=== PATIENT | male | born 1955 | race African-American/Black ===

== ENCOUNTER 2022-12-25 16:07 | Emergency (ER) | payer MEDICARE, OTHER ==
[~2022-12-25] VITALS: Ht 175.3 cm; Wt 36.0 kg
[2022-12-26 00:26] LABS: BASOPHILS % 0.1 % (0.0-2.0); EOSINOPHILS % 0.6 % (0.0-5.0); HEMATOCRIT. 45.4 % (42.0-52.0); HEMOGLOBIN. 15.1 g/dL (14.0-18.0); LYMPHOCYTES % 34.9 % (20.0-50.0); MEAN CORPUSCULAR HEMOGLOBIN 30.2 pg (28.0-32.0); MEAN CORPUSCULAR VOLUME 90.9 fL (80.0-94.0); MEAN PLATELET VOLUME 9.2 fl (7.4-10.4); MONOCYTES % 9.9 % (2.0-8.0); NEUTROPHILS % 54.5 % (40.0-76.0); PLATELET 144 x1000/uL (130-400); RED BLOOD CELL COUNT 4.99 mill/uL (4.7-6.1); RED CELL DISTRIBUTION WIDTH 16.2 % (11.6-14.6)
[2022-12-26 00:34] LABS: CHLORIDE 107 mEq/L (98-107)
[2022-12-26 00:52] LABS: ETHANOL BLOOD < 10 mg/dL
[2022-12-26] MEDS ORDERED: SODIUM CHLORIDE 0.9% 1,000 ML IV ONE (06:30)
[2022-12-26 12:38] VITALS: BP 107/67
== END 2022-12-26 12:39 ==
LOC: ER 16:07 → CANBEDREQ 12-26 12:43
DX: F20.9 Schizophrenia, unspecified (principal); E11.9 Type 2 diabetes mellitus without complications; Z20.822 Contact with and (suspected) exposure to COVID-19
CPT/HCPCS: 36415; 70450; 71045; 73080; 74018; 80053; 80307; 80320; 80329; 82140; 82962; 84443; 84484; 85025; 87426; 96360; 96361; 99285; C9803; J7030; G0480